=== PATIENT | male | born 1955 | race African-American/Black ===

== ENCOUNTER → 2018-05-11 | Outpatient (CLI) | payer OTHER ==
[~2018-05-11] MED LIST: ALLOPURINOL 30300 M1 PO; AMLODIPINE BESY10 MG PO; CARDURA XL4 MG PO; CIPROFLOXACIN500 M1 PO; FLAGYL500 MG PO; MULTI VITAMIN1 EACH PO; SIMVASTATIN40 MG PO; TRIAMTERENE-HC1 EAC1 PO
[2018-05-11 07:50] LABS: ABSOLUTE BASOPHILS 0.1 thou/uL (0.0-0.2); ABSOLUTE EOSINOPHILS 0.4 thou/uL (0.0-0.7); ABSOLUTE LYMPHOCYTES 3.2 thou/uL (0.8-5.3); ABSOLUTE MONOCYTES 0.7 thou/uL (0.0-1.2); ABSOLUTE NEUTROPHILS 4.8 thou/uL (1.6-8.1); EOSINOPHILS 3.9 %; HEMATOCRIT 27.1 % (42.0-52.0); HEMOGLOBIN 9.2 gm/dL (14.0-18.0); LYMPHOCYTES 35.3 %; MCHC 33.7 g/dL (28.0-37.0); MCV 80.1 fL (80.0-100.0); MONOCYTES 7.8 %; MPV 8.3 fl. (7.2-11.1); NUCLEATED RBCS 0 /100WBC; PLATELET COUNT* 385 thou/uL (150-400); RBC 3.39 mil/uL (4.50-6.00); RDW-CV 17.2 % (10.5-14.5); WBC 9.2 thou/uL (4.0-11.0)
[2018-05-11 08:03] LABS: ALBUMIN 2.9 g/dL (3.4-5.0); CALCIUM 8.3 mg/dL (8.5-10.1); POTASSIUM 3.6 mmol/L (3.5-5.1); TOTAL BILIRUBIN 0.4 mg/dL (<0.1-1.0); TOTAL PROTEIN 7.5 g/dL (6.4-8.2)
== END ==
LOC: M.LAB 07:30 → M.CT 09:30
PROVIDERS: Nurse Practitioner Adult Health
DX: K76.0 Fatty (change of) liver, not elsewhere classified (principal); K57.32 Diverticulitis of large intestine without perforation or abscess without bleeding; N28.1 Cyst of kidney, acquired; R10.9 Unspecified abdominal pain; R11.2 Nausea with vomiting, unspecified; K92.1 Melena

== ENCOUNTER → 2019-02-07 | Outpatient (CLI) | payer OTHER | LOC: M.MRI 11:30 | DX: M76.61 Achilles tendinitis, right leg (principal) ==

== ENCOUNTER → 2019-07-03 | Outpatient (CLI) | payer OTHER | LOC: M.MRI 11:11 | DX: M51.26 Other intervertebral disc displacement, lumbar region (principal); M71.38 Other bursal cyst, other site ==